=== PATIENT | male | born 1970 | race Two or more races ===

== ENCOUNTER 2018-11-29 22:49 | Emergency (ER) | payer OTHER ==
[~2018-11-29] VITALS: Ht 170.2 cm; Wt 83.9 kg
[2018-11-30] MEDS ORDERED: TAMS0.4C PO (06:02)
[2018-11-30] MEDS ORDERED: KETO10TA2 PO (06:02)
== END 2018-11-30 06:39 ==
LOC: ER 22:49
DX: N20.0 Calculus of kidney (principal)